=== PATIENT | female | born 2000 | race Caucasian/White ===

== ENCOUNTER 2020-09-01 01:52 | Emergency (ER) | payer OTHER ==
[~2020-09-01] VITALS: Ht 167.6 cm; Wt 102.1 kg
[2020-09-01 02:21] VITALS: Ht 167.6 cm; Wt 102.1 kg
[2020-09-01 07:26] VITALS: BP 127/73
== END 2020-09-01 07:26 | disposition home or self-care (01) ==
LOC: ED 01:52
DX: S62.102A Fracture of unspecified carpal bone, left wrist, initial encounter for closed fracture (principal); S80.211A Abrasion, right knee, initial encounter; M25.531 Pain in right wrist; M25.562 Pain in left knee; Z86.2 Personal history of diseases of the blood and blood-forming organs and certain disorders involving the immune mechanism; V49.59XA Passenger injured in collision with other motor vehicles in traffic accident, initial encounter; Y93.89 Activity, other specified; Y92.488 Other paved roadways as the place of occurrence of the external cause; Y99.8 Other external cause status
CPT/HCPCS: Q0092